=== PATIENT | male | born 1990 | race Caucasian/White ===

== ENCOUNTER 2023-08-31 20:23 | Emergency (ER) | payer SELFPAY ==
[2023-08-31 22:37] LABS: SARS-CoV-2 NAA Rapid Test Not Detected (NotDetected)
== END 2023-08-31 21:43 | disposition home or self-care (01) ==
LOC: CSHERS 20:23
DX: H65.02 Acute serous otitis media, left ear (principal); H73.92 Unspecified disorder of tympanic membrane, left ear; R05.9 Cough, unspecified; B34.9 Viral infection, unspecified; E11.9 Type 2 diabetes mellitus without complications; F17.290 Nicotine dependence, other tobacco product, uncomplicated; Z20.822 Contact with and (suspected) exposure to COVID-19
CPT/HCPCS: 96372; 99283

== ENCOUNTER 2024-03-07 19:42 | Emergency (ER) | payer BC | END 2024-03-07 21:50 | disposition home or self-care (01) | LOC: CSHERS 19:42 | DX: L84 Corns and callosities (principal); S92.401D Displaced unspecified fracture of right great toe, subsequent encounter for fracture with routine healing; R03.0 Elevated blood-pressure reading, without diagnosis of hypertension; E11.9 Type 2 diabetes mellitus without complications; J45.909 Unspecified asthma, uncomplicated; F17.210 Nicotine dependence, cigarettes, uncomplicated; X58.XXXD Exposure to other specified factors, subsequent encounter | CPT/HCPCS: 36415; 80053; 85025 ==

== ENCOUNTER 2024-07-24 08:03 | Outpatient (CLI) | payer OTHER | END 2024-07-24 08:04 | disposition home or self-care (01) | LOC: CSHWCC 08:03 | PROVIDERS: ATTEND Nurse Practitioner Family | DX: E11.621 Type 2 diabetes mellitus with foot ulcer (principal); L97.512 Non-pressure chronic ulcer of other part of right foot with fat layer exposed; E11.65 Type 2 diabetes mellitus with hyperglycemia | CPT/HCPCS: 11042; 99213; G0463 ==

== ENCOUNTER 2024-07-25 11:29 | Outpatient (CLI) | payer OTHER | END 2024-07-25 11:30 | disposition home or self-care (01) | LOC: CSHWCC 11:29 | PROVIDERS: ATTEND Nurse Practitioner Family | DX: E11.621 Type 2 diabetes mellitus with foot ulcer (principal); E11.65 Type 2 diabetes mellitus with hyperglycemia; L97.512 Non-pressure chronic ulcer of other part of right foot with fat layer exposed | CPT/HCPCS: 97605 ==

== ENCOUNTER 2024-07-27 14:13 | Outpatient (CLI) | payer SELFPAY | END 2024-07-27 14:14 | disposition home or self-care (01) | LOC: CSHWCC 14:13 | PROVIDERS: ATTEND Nurse Practitioner Family | DX: E11.621 Type 2 diabetes mellitus with foot ulcer (principal); L97.512 Non-pressure chronic ulcer of other part of right foot with fat layer exposed; E11.65 Type 2 diabetes mellitus with hyperglycemia | CPT/HCPCS: 97605 ==

== ENCOUNTER 2024-08-03 11:59 | Outpatient (CLI) | payer SELFPAY | END 2024-08-03 12:00 | disposition home or self-care (01) | LOC: CSHWCC 11:59 | PROVIDERS: ATTEND Nurse Practitioner Family | DX: E11.621 Type 2 diabetes mellitus with foot ulcer (principal); L97.512 Non-pressure chronic ulcer of other part of right foot with fat layer exposed; E11.65 Type 2 diabetes mellitus with hyperglycemia | CPT/HCPCS: 11042; 11045; 97605 ==

== ENCOUNTER 2024-08-07 15:44 | Outpatient (CLI) | payer SELFPAY | END 2024-08-07 15:45 | disposition home or self-care (01) | LOC: CSHWCC 15:44 | PROVIDERS: ATTEND Nurse Practitioner Family | DX: E11.621 Type 2 diabetes mellitus with foot ulcer (principal); L97.512 Non-pressure chronic ulcer of other part of right foot with fat layer exposed; E11.65 Type 2 diabetes mellitus with hyperglycemia | CPT/HCPCS: 11042; 11045 ==

== ENCOUNTER 2024-09-06 15:35 | Outpatient (CLI) | payer OTHER, SELFPAY | END 2024-09-06 15:36 | disposition home or self-care (01) | LOC: CSHWCC 15:35 | PROVIDERS: ATTEND Nurse Practitioner Family | DX: E11.621 Type 2 diabetes mellitus with foot ulcer (principal); L97.512 Non-pressure chronic ulcer of other part of right foot with fat layer exposed; E11.65 Type 2 diabetes mellitus with hyperglycemia; M86.171 Other acute osteomyelitis, right ankle and foot; F19.10 Other psychoactive substance abuse, uncomplicated | CPT/HCPCS: 11042 ==

== ENCOUNTER 2024-09-13 09:15 | Outpatient (CLI) | payer SELFPAY | END 2024-09-13 09:16 | disposition home or self-care (01) | LOC: CSHWCC 09:15 | PROVIDERS: ATTEND Nurse Practitioner Family | DX: E11.621 Type 2 diabetes mellitus with foot ulcer (principal); L97.512 Non-pressure chronic ulcer of other part of right foot with fat layer exposed; E11.65 Type 2 diabetes mellitus with hyperglycemia; M86.171 Other acute osteomyelitis, right ankle and foot; F19.10 Other psychoactive substance abuse, uncomplicated | CPT/HCPCS: 11042 ==

== ENCOUNTER 2024-09-26 09:00 | Outpatient (CLI) | payer SELFPAY | END 2024-09-26 09:01 | disposition home or self-care (01) | LOC: CSHWCC 09:00 | PROVIDERS: ATTEND Nurse Practitioner Family | DX: E11.621 Type 2 diabetes mellitus with foot ulcer (principal); L97.512 Non-pressure chronic ulcer of other part of right foot with fat layer exposed; E11.65 Type 2 diabetes mellitus with hyperglycemia; M86.171 Other acute osteomyelitis, right ankle and foot; F19.10 Other psychoactive substance abuse, uncomplicated | CPT/HCPCS: 11042 ==

== ENCOUNTER 2024-10-11 11:14 | Outpatient (CLI) | payer SELFPAY | END 2024-10-11 11:15 | disposition home or self-care (01) | LOC: CSHWCC 11:14 | PROVIDERS: ATTEND Nurse Practitioner Family | DX: E11.621 Type 2 diabetes mellitus with foot ulcer (principal); L97.512 Non-pressure chronic ulcer of other part of right foot with fat layer exposed; E11.65 Type 2 diabetes mellitus with hyperglycemia; M86.171 Other acute osteomyelitis, right ankle and foot; F19.10 Other psychoactive substance abuse, uncomplicated | CPT/HCPCS: 11042; 97597; 99212; G0463 ==

== ENCOUNTER 2024-10-18 11:24 | Outpatient (CLI) | payer OTHER, SELFPAY | END 2024-10-18 11:25 | disposition home or self-care (01) | LOC: CSHWCC 11:24 | PROVIDERS: ATTEND Nurse Practitioner Family | DX: E11.621 Type 2 diabetes mellitus with foot ulcer (principal); L97.512 Non-pressure chronic ulcer of other part of right foot with fat layer exposed; E11.65 Type 2 diabetes mellitus with hyperglycemia; M86.171 Other acute osteomyelitis, right ankle and foot; F19.10 Other psychoactive substance abuse, uncomplicated | CPT/HCPCS: 11042 ==

== ENCOUNTER 2025-06-08 22:46 | Emergency (ER) | payer OTHER, SELFPAY ==
[2025-06-08] MEDS ORDERED: Lidocaine 1% w/Epinephrine 1:200K 30 ML VIAL ONE (23:09)
[2025-06-09 00:17] LABS: #Basophils 0.03 10x3/uL (0.0-0.2); #Eosinophils 0.30 10x3/uL (0.0-0.5); #Monocytes 0.48 10x3/uL (0.0-1.1); #Neutrophils 4.94 10x3/uL (1.5-8.4); %Basophils 0.4 % (0.0-2.0); %Eosinophils 3.9 % (0.0-6.0); %Lymphocytes 25.5 % (18.0-47.0); %Monocytes 6.2 % (0.0-10.0); %Neutrophils 63.7 % (40.0-75.0); Hematocrit 44.8 % (38.8-50.0); Hemoglobin 14.8 g/dL (13.5-17.5); Mean Corpuscular Hemoglobin 28.1 pg (27.0-33.0); Mean Corpuscular Volume 85.0 fL (81.2-95.1); Platelet Count 168 10x3/uL (150-450); Red Blood Cell (RBC) Count 5.27 10x6/uL (4.32-5.72); White Blood Cell (WBC) Count 7.75 10x3/uL (3.5-10.5)
[2025-06-09 00:32] LABS: ALT (SGPT) 9 U/L (Less than 45); AST (SGOT) 10 U/L (11-34); Albumin 3.3 g/dL (3.1-4.5); Alkaline Phosphatase 103 U/L (40-110); Anion Gap 12 mmol/L (10-20); BUN (Urea Nitrogen) 18 mg/dL (8.9-20.6); Bilirubin, Total 0.3 mg/dL (0.3-1.2); Calc. Creatinine Clearance 0 mL/min (70-130); Calcium 9.6 mg/dL (7.8-10.44); Carbon Dioxide 29 mmol/L (22-29); Chloride 98 mmol/L (98-107); Globulin 5.0 g/dL (2.4-3.5); Glucose 316 mg/dL (70-105); Potassium 4.2 mmol/L (3.5-5.1); Sodium 135 mmol/L (136-145)
[2025-06-09] MEDS ORDERED: Ketorolac Tromethamine 30 MG (1 mL) VIAL ONE (00:33)
[2025-06-09] MEDS ORDERED: Sulfameth/Trimethoprim DS 800-160mg TAB ONE (00:34)
[2025-06-09] MEDS ORDERED: Acetaminophen 500 MG TAB ONE (00:34)
[2025-06-09 05:50] LABS: Actual Bicarbonate (HCO3v) 30.5 mEq/L (22-28); Analyzer IN Cardio CS ER; Base Excess 3.2 mEq/L (-2 - +2); Calcium, Ionized (venous) 1.22 mmol/L (1.16-1.32); Chloride (VBG) 97 mmol/L (98-106); Hematocrit-VBG 47 % (42.0-52.0); Hemoglobin (Hb) 15.9 g/dL (13.2-17.3); Potassium (VBG) 4.20 mmol/L (3.70-5.30); Puncture Site Other Site; RapidComm Collect By lab; Sodium 135 mmol/L (133-146)
== END 2025-06-09 01:41 | disposition home or self-care (01) ==
LOC: CSHERS 22:46
DX: L02.413 Cutaneous abscess of right upper limb (principal); I10 Essential (primary) hypertension; E11.65 Type 2 diabetes mellitus with hyperglycemia; F17.210 Nicotine dependence, cigarettes, uncomplicated; F14.10 Cocaine abuse, uncomplicated; F15.10 Other stimulant abuse, uncomplicated; Z55.6 Problems related to health literacy
CPT/HCPCS: 10060; 36416; 80053; 82010; 82805; 85025; 87070; 87077; 87186; 87205; 96374; J1885